=== PATIENT | male | born 1940 | race Caucasian/White ===

== ENCOUNTER → 2023-08-13 11:58 | Outpatient (REF) | payer MEDICARE, SELFPAY ==
[2023-08-13 12:45] LABS: % Basophils 0.4 % (0-2); % Eosinophils 2.2 % (0-6); % Immature Granulocytes 0.3 % (0-0.5); % Monocytes 7.6 % (1.7-9.3); % Neutrophils 45.5 % (42.2-75.2); Absolute Eosinophils 0.2 10^3/uL (0-0.7); Absolute Lymphocytes 4.7 10^3/uL (1.2-3.4); Absolute Monocytes 0.8 10^3/uL (0.1-0.6); Absolute Neutrophils 4.9 10^3/uL (1.4-6.5); Mean Corp Hgb Conc. 33.3 g/dL (33.0-37.0); Mean Corpuscular Hgb 29.1 pg (27.0-31.0); Mean Corpuscular Volume 87.3 fL (80.0-94.0); Mean Platelet Volume 11.1 fL (7.4-10.4); Nucleated Red Blood Cells % 0 % (-); Platelet Count 231 10^3/uL (130-400); Red Blood Cell Count 4.81 10^6/uL (4.70-6.10); Red Cell Dist. Width 12.5 % (11.5-14.5); White Blood Cell Count 10.7 10^3/uL (4.8-10.8)
[2023-08-13 13:40] LABS: TSH 2.89 uIU/ml (0.47-4.68)
[2023-08-13 13:41] LABS: Microalbumin, Random Urine > 57.0 mg/dl (0.6-1.7)
[2023-08-13 14:24] LABS: Glycohemoglobin (HgbA1c) 7.1 % (4.0-5.6)
[2023-08-15 23:00] LABS: PSA Total 0.2 ng/mL (0.0-4.0)
== END ==
LOC: REG 11:58
PROVIDERS: ATTENDING PHYSICIAN Internal Medicine
DX: E11.21 Type 2 diabetes mellitus with diabetic nephropathy (principal); R53.83 Other fatigue; E78.5 Hyperlipidemia, unspecified; Z00.00 Encounter for general adult medical examination without abnormal findings; D72.9 Disorder of white blood cells, unspecified; N40.0 Benign prostatic hyperplasia without lower urinary tract symptoms; N52.9 Male erectile dysfunction, unspecified
CPT/HCPCS: 36415; 82043; 83036; 84153; 84154; 84443; 85025

== ENCOUNTER 2023-11-19 06:58 | Day surgery (SDC) | payer MEDICARE, SELFPAY ==
[2023-11-19] VITALS (17 sets, daily range): BP systolic 139–228; BP diastolic 72–123
--- NOTE | 2023-11-19 04:28 | ED.GENMED ---
History of Present Illness
General
Chief Complaint: Urinary Symptoms
Source: patient
Exam Limitations: none
Time Seen by Provider: 11/19/23 04:22
Travel History
Have you had any contact with someone who has COVID-19?: No
Do you have any symptoms of coronavirus? Fever > 100 degrees, chills, cough, shortness of breath, sore throat, loss of taste or smell, muscle aches, or headache?: No
History of Present Illness
History of Present Illness:
See MDM
Past History
Past History
ED Past Medical History: GERD, HTN, Other (Colon polyps, diverticular disease, DJD) and Other (3 weeks ago, stung by a number of bees in the face, face swelled badly, saw pmd, put on prednisone and given epi pen rx with instruction to use if stung
again)
Social History
Tobacco: Non-smoker
Personal:
Living: with family
Employment: Retired
Phy Exam
Physical Exam
Physical Exam:
See MDM
Course
Orders/Labs/Results
Orders:
Orders
11/19/23 04:27
Catheter [Gonzalez Placement- Treatment] ONCE
Reason for insertion: Acute Retention
Tamsulosin [Flomax] 0.4 mg PO NOW STA
11/19/23 04:28
Urinalysis Reflex To Culture Urgent
11/19/23 05:29
Consult Urology [UROLOGY CONSULT] Urgent
Consulting Provider: Onel Grant Jr.
Was physician already notified: Yes
Vital Signs
Initial and Last Documented VS:
Initial Vital Signs
Temp Pulse Resp BP Pulse Ox
97.8 F 78 24 213/116 100
11/19/23 04:09 11/19/23 04:09 11/19/23 04:09 11/19/23 04:09 11/19/23 04:09
Last Documented Vital Signs
Temp Pulse Resp BP Pulse Ox
97.8 F 78 24 228/123 93
11/19/23 04:09 11/19/23 04:09 11/19/23 04:09 11/19/23 05:23 11/19/23 05:30
MDM/Problems Addressed
Differential Diagnosis Includes:
HPI and MDM Narrative:
83-year-old male presenting with trouble urinating since yesterday. Patient states he intermittently dribbles and intermittently has incontinence issues. When questioned, patient states that he does have a large prostate but does not take medicine
for it. He has followed up with urology in the past. Bedside bladder scan shows greater than 700 cc of urine. Patient gave verbal consent for urinary catheter placement
Physical exam
General: Well appearing and non-toxic
HEENT: protecting airway
Neck: appears supple
CV: No evidence of cyanosis
Resp: No accessory muscle use
Abd: Non-distended. Palpable bladder
Extremities: No deformities
Neuro: alert
Psych: Normal affect
Skin: Intact
Problems Addressed including Acute and Chronic Conditions affecting care:
1. Acute urinary retention
Acuity: acute
Prognosis: stable
Details: Given age likely related to prostate hypertrophy. Will place Gonzalez catheter and start flow
Updates
Nursing unable to place Gonzalez catheter. I had tried with coud� and silicone and unable to place Gonzalez catheter. Urology made aware
6 AM urology at bedside and unable to place Gonzalez. Will plan to OR
Will give dose of labetalol for uncontrolled hypertension
Differential Diagnosis (but not limited to): UTI, BPH, bladder spasm, prostate spasm
Testing considered: Blood work
Drug therapy (if applicable): OTC meds, please see d/c instruction regarding Rx drugs
Amount and/or Complexity of Data Reviewed
Clinical info obtained from: Patient
External data reviewed: N/A
Labs I independently reviewed (but not limited to): N/A
Radiology: N/A
Pulse Ox: not hypoxic
EKG independently reviewed: N/A
In Mold Coater: N/A
Critical Care: N/A
Risk of Complication:
Social Determinants of health: Good social support
Discussed with other providers: Urology
Escalation of Care includes Admit/Obs: Given the acute urinary retention and unable to place Gonzalez, patient will go to the OR
Occasional wrong word or 'sound a like' substitutions may have occurred due to the inherent limitations of voice recognition software. Read the chart carefully and recognize, using context, where substitutions have occurred.
*Critical Care Note
Total Time (30-74mins, 75-104mins- exclusive of procedures): Not Applicable
ED Attending Note
-
Portions of this chart may have been created with voice recognition software.� Occasional wrong word or��sound alike� substitutions may have occurred due to the inherent limitations of voice recognition software.
Discharge Plan
Departure
Patient Disposition: OR
Date of Disposition: 11/19/23
Time of Disposition: 06:05
Admit to: OR
Presentation/result/management discussed w/ accepting MD/DO: Urology
Discharge Problem:
Acute urinary retention
Prescriptions:
No Action
Aspirin
81 mg PO DAILY
lansoprazole [Prevacid] 30 MG capsule,delayed release(DR/EC)
30 mg PO DAILY
atenolol 50 MG tablet
50 mg PO DAILY
FIBER LAXATIVE
Patient Comments:
pt takes two 'Fiber Gummies 10mg each' daily
FISH OIL 1,000 MG SOFTGEL
1 gel PO DAILY
MULTIVITAMIN
1 tab PO DAILY
SAW PALMETTO
1 tab PO DAILY
hydrocodone-acetaminophen 5 MG/500 MG tablet
1 tab PO Q4HPRN PRN (Reason: PAIN) Qty: 25 0RF
Interventions
Interventions:
*Risk Screen - Suicide Last Done: 11/19/23 04:09
*Neglect/Abuse Screening Last Done: 11/19/23 04:09
ED-Male Genitourinary Assessment Last Done: 11/19/23 05:38
Discharge Date and Time
Print Language: WOLOF
[2023-11-19] MEDS: FLOMAX 0.400000000000000022 MG PO (05:44)
[2023-11-19] MEDS: ROCEPHIN 1000 MG IV (06:13)
--- NOTE | 2023-11-19 06:15 | W.PN.ADMIT ---
Progress Note - Admit
Progress Note - Admit
pt without prior gu hx
developed AUR
unable to pass villanueva
multiple attempts at bedside- obstruction appears to be in urethra- ? stx
now with hematuria
plan for OR for cysto/dilation/villanueva placement- although sp tube may be required
risks, benefits and disabilities reviewed
[2023-11-19] MEDS: TRANDATE 10 MG IV (06:21)
[2023-11-19 06:33] LABS: % Basophils 0.4 % (0-2); % Eosinophils 2.3 % (0-6); % Immature Granulocytes 0.4 % (0-0.5); % Monocytes 8.2 % (1.7-9.3); % Neutrophils 52.7 % (42.2-75.2); Absolute Basophils 0.1 10^3/uL (0-0.2); Absolute Eosinophils 0.3 10^3/uL (0-0.7); Absolute Immature Granulocytes 0.1 10^3/uL (0-0.05); Absolute Lymphocytes 4.9 10^3/uL (1.2-3.4); Absolute Monocytes 1.1 10^3/uL (0.1-0.6); Absolute Neutrophils 7.2 10^3/uL (1.4-6.5); Hemoglobin 15.1 g/dL (13.0-18.0); Mean Corp Hgb Conc. 35.1 g/dL (33.0-37.0); Mean Corpuscular Hgb 29.3 pg (27.0-31.0); Mean Corpuscular Volume 83.5 fL (80.0-94.0); Mean Platelet Volume 11.1 fL (7.4-10.4); Nucleated Red Blood Cells % 0 % (-); Platelet Count 242 10^3/uL (130-400); Red Blood Cell Count 5.15 10^6/uL (4.70-6.10); Red Cell Dist. Width 12.7 % (11.5-14.5); White Blood Cell Count 13.6 10^3/uL (4.8-10.8)
[2023-11-19 06:40] LABS: INR 0.97; PT 12.7 Sec (11.4-14.6)
[2023-11-19 06:41] LABS: APTT 36.1 Sec (23.4-35.0)
[2023-11-19 06:45] LABS: ALT (SGPT) 15 U/L (0-50); AST (SGOT) 27 U/L (17-59); Albumin 4.4 g/dl (3.5-5.0); Alkaline Phosphatase 137 U/L (38-126); Blood Urea Nitrogen 27 mg/dl (9-20); Calcium 9.4 mg/dl (8.4-10.2); Carbon Dioxide 24 mmol/L (22-30); Chloride 100 mmol/L (98-107); Glucose 206 mg/dl (70-99); Potassium 4.4 mmol/L (3.5-5.1); Sodium 136 mmol/L (135-145); Total Bilirubin 0.5 mg/dl (0.2-1.3); Total Protein 7.4 g/dl (6.3-8.2); eGFR > 60.00
[2023-11-19 08:25] LABS: Glucose - Point of Care 184 mg/dl (70-99)
[2023-11-19] MEDS: NSS 1000 IV ×2 (09:00→22:04)
--- NOTE | 2023-11-19 10:00 | PTCARENOTE ---
Pt received from the PACU via bed. Transport was w/o incident. Pt denies pain or nausea at this time. VS: 98.4-70-16-154/90, pulse ox 98%2L 02 via nc. Pt with low abd suprapubic area dry, guaze dressing, no drainage noted. Gonzalez from Supra pubic
area draining clear, sl green urine. Pt instructed on plan of care, Pt verbalized understanding of instructions, call weinstein is within reach.
--- NOTE | 2023-11-19 10:23 | SUR.PHASEI ---
patient in pacu - post insertion of suprapubic cath, vss, BP much improved from preop. minimal discomfort. attempted to wean O2 - sats drop with sleep. resume 2l/m NC. occasional bloody drainage from penis. SO - Bianca - updated x2. discharge to
[address]
[2023-11-19] MEDS: TENORMIN 50 MG PO (17:56)
[2023-11-19] MEDS: COZAAR 100 MG PO (17:57)
[2023-11-19] MEDS: PROTONIX 40 MG PO (17:57)
[2023-11-19] MEDS: GLUCOPHAGE 500 MG PO (17:57)
[2023-11-19] MEDS: KEFLEX 250 MG PO (20:14)
[2023-11-19] MEDS: COLACE 100 MG PO (20:15)
--- NOTE | 2023-11-20 04:26 | DOWNTIME ---
There was a [employer] Client Boxer Operator Downtime on 11/19/2023 from 0100 to 11/20/2023 at 0300. Downtime documentation of patient's care, including medication administrations, has been reconciled in the electronic record per guidelines. Refer to the
patient's paper chart under the miscellaneous tab to see printed paper medication records and downtime forms.
[2023-11-20 07:04] LABS: Hematocrit 38.5 % (39.0-52.0); Hemoglobin 12.8 g/dL (13.0-18.0); Mean Corp Hgb Conc. 33.2 g/dL (33.0-37.0); Mean Corpuscular Hgb 28.8 pg (27.0-31.0); Mean Corpuscular Volume 86.5 fL (80.0-94.0); Mean Platelet Volume 10.8 fL (7.4-10.4); Platelet Count 203 10^3/uL (130-400); Red Blood Cell Count 4.45 10^6/uL (4.70-6.10); Red Cell Dist. Width 12.8 % (11.5-14.5); White Blood Cell Count 16.5 10^3/uL (4.8-10.8)
--- NOTE | 2023-11-20 07:28 | W.PN.URO.CBU ---
Today's Communication / Plan
-
discharge after cath teaching and VN
Assessment / Plan
-
urinary retention and urethral obstruction/stx
s/p sp tube placement
reviewed OR findings and outpt plan
for discharge today with VN
Diagnosis
-
Date of Service: November 20, 2023
-
Patient Diagnosis:
urinary retention
Post Op Day:
1 sp tube placement
Subjective
-
pt feels good
urine clear
ct with no unexpected findings
Objective
-
Vital Signs
Temp Pulse Resp BP Pulse Ox
97.8 F 71 16 144/78 94
11/19/23 22:15 11/19/23 22:15 11/19/23 22:15 11/19/23 22:15 11/19/23 22:15
Intake and Output
11/19/23 11/20/23 11/21/23
06:59 06:59 06:59
Intake Total 1520 / 1520
Output Total 5150 / 5150
Balance -3630 / -3630
Intake:
Oral fluids 360 / 360
IV fluids (Total) 1160 / 1160
normosol 100 / 100
nss 100 / 100
Output:
Urine, Gonzalez 5150 / 5150
Laboratory Results
11/20/23 06:35
Review of Systems
-
Constitutional: Fatigue
Respiratory: No Symptoms
Cardiac: No Symptoms
Abdomen/GI: No Symptoms
: No Symptoms
Physical Exam
-
General - no acute distress
Abdomen - soft, non-tender, positive bowel sounds, sp tube and site with no sig discharge- urine clear
Genitalia - normal
Skin - warm & dry with no rash
Neuro - AOx3, no motor deficits
Extremities - no clubbing, no cyanosis, no edema
--- NOTE | 2023-11-20 07:33 | W.DS.TRANS ---
DC Summary - [employer]
-
Discharge Instructions:
Discharge Diagnosis/Procedures urinary retention and urethral stricture
you had a supra-pubic tube placement
Diet No restrictions
Activity No strenuous activity
Driving Restrictions No driving for 1 week
Bathing Restrictions OK to Shower
Wound Care change dressing around bladder tube once a day
Instructions:
Stand-Alone Forms:
Changes to Home Medications: No
Discharge Medications:
DC Medications w/original date entered in [employer]
SAW PALMETTO 1 tab PO DAILY 10/05/10
atenolol 50 mg tablet 50 mg PO DAILY 10/05/10
losartan 100 mg tablet 100 mg PO DAILY 11/19/23
metformin 500 mg tablet 500 mg PO DAILY 11/19/23
omeprazole 20 mg capsule,delayed release 20 mg PO DAILY 11/19/23
cephalexin 250 mg capsule 250 mg PO BID #10 caps 11/20/23
Home Medication Changes
Pending Results: No
[2023-11-20 07:40] LABS: Blood Urea Nitrogen 31 mg/dl (9-20); Calcium 8.9 mg/dl (8.4-10.2); Carbon Dioxide 26 mmol/L (22-30); Chloride 101 mmol/L (98-107); Estimated Creatinine Clearance 56 ml/min; Glucose 140 mg/dl (70-99); Potassium 4.4 mmol/L (3.5-5.1); Sodium 135 mmol/L (135-145); eGFR 59.26
[2023-11-20 07:41] VITALS: BP 184/93
[2023-11-20] MEDS: GLUCOPHAGE 500 MG PO (07:57)
[2023-11-20] MEDS: COZAAR 100 MG PO (07:57)
[2023-11-20] MEDS: PROTONIX 40 MG PO (07:57)
[2023-11-20] MEDS: APRESOLINE 5 MG IV (07:58)
[2023-11-20] MEDS: KEFLEX 250 MG PO (07:58)
[2023-11-20] MEDS: TENORMIN 50 MG PO (07:58)
[2023-11-20] MEDS: COLACE 100 MG PO (07:58)
--- NOTE | 2023-11-20 10:08 | CM ---
care services manager reviewed patient's chart and met with patient and patient states he lives alone in a [place] and [place] community. Patient is independent with adl's and ambulation, no dme, patient drives, patient has a friend who lives nearby, and can assist
patient after discharge, patient's son, Ramón is visiting from [place]. care services manager reviewed visiting nurses options with patient and patient has selected [facility], [facility] liaison contacted. Patient has a prescription plan and uses [facility] pharmacy.
PCP: Dr. Rodriguez.
Plan; Home with VN.
[2023-11-20 12:20] VITALS: BP 160/82
--- NOTE | 2023-11-20 12:21 | VNURNOTE ---
Home Health Liaison met with patient, son and significant other Bianca at 1030 to discuss [facility] nurse visits, schedule and homebound status. Patient is agreeable and understands that visits at home will be 2-3 x per week to assess and teach medical
management and suprapubic tube management.
[facility] brochure provided with contact information. Patient is aware that [facility] will contact him for start of care in 1-2 days after discharge from .
[facility] referral completed in Care Port.
== END 2023-11-20 12:43 | disposition home health service (06) ==
LOC: PACU 06:58
PROVIDERS: ATTENDING PHYSICIAN Specialist; EMERGENCY PHYSICIAN Student in an Organized Health Care Education/Training Program; FAMILY PHYSICIAN Internal Medicine
DX: N35.919 Unspecified urethral stricture, male, unspecified site (principal); R33.9 Retention of urine, unspecified
CPT/HCPCS: 51040; 74176; 80048; 80053; 82962; 85025; 85027; 85610; 85730; 86850; 86900; 86901; 93005; 96374; 96375; 99285

== ENCOUNTER 2024-01-07 06:10 | Day surgery (SDC) | payer MEDICARE, SELFPAY ==
[2024-01-07] VITALS (8 sets, daily range): BP systolic 159–191; BP diastolic 87–97; BMI 31.8
[2024-01-07] MEDS: NORMOSOL-R 1000 IV (07:10)
[2024-01-07 07:19] LABS: Glucose - Point of Care 142 mg/dl (70-99)
[2024-01-07] MEDS: TYLENOL 1000 MG PO (07:42)
[2024-01-07 08:56] LABS: Glucose - Point of Care 152 mg/dl (70-99)
== END 2024-01-07 10:14 | disposition home or self-care (01) ==
LOC: SDS 06:10
PROVIDERS: ATTENDING PHYSICIAN Specialist
DX: N35.919 Unspecified urethral stricture, male, unspecified site (principal); R33.9 Retention of urine, unspecified
CPT/HCPCS: 52276; 72170; 76000; 82962; J1580

== ENCOUNTER → 2024-02-12 11:45 | Outpatient (REF) | payer MEDICARE, SELFPAY ==
[2024-02-12 14:24] LABS: Glycohemoglobin (HgbA1c) 6.9 % (4.0-5.6)
[2024-02-12 14:41] LABS: ALT (SGPT) 16 U/L (0-50); AST (SGOT) 28 U/L (17-59); Albumin 4.2 g/dl (3.5-5.0); Alkaline Phosphatase 103 U/L (38-126); Blood Urea Nitrogen 28 mg/dl (9-20); Calcium 9.7 mg/dl (8.4-10.2); Carbon Dioxide 30 mmol/L (22-30); Chloride 99 mmol/L (98-107); Glucose 140 mg/dl (70-99); HDL Cholesterol 49 mg/dl; LDL Cholesterol, Calculated 119 mg/dl; Potassium 5.5 mmol/L (3.5-5.1); Sodium 137 mmol/L (135-145); Total Bilirubin 0.8 mg/dl (0.2-1.3); Total Cholesterol 185 mg/dl (50-199); Total Protein 6.9 g/dl (6.3-8.2); Triglyceride 87 mg/dl (10-149); Very Low Density Lipoprotein 17 mg/dl (0-30); eGFR 49.25
== END ==
LOC: REG 11:45
PROVIDERS: ATTENDING PHYSICIAN Internal Medicine
DX: E11.21 Type 2 diabetes mellitus with diabetic nephropathy (principal); E78.5 Hyperlipidemia, unspecified
CPT/HCPCS: 36415; 80053; 80061; 83036

== ENCOUNTER → 2024-08-13 12:35 | Outpatient (REF) | payer MEDICARE, SELFPAY ==
[2024-08-13 13:25] LABS: ALT (SGPT) 14 U/L (0-50); AST (SGOT) 25 U/L (17-59); Albumin 4.1 g/dl (3.5-5.0); Alkaline Phosphatase 104 U/L (38-126); Blood Urea Nitrogen 24 mg/dl (9-20); Calcium 9.4 mg/dl (8.4-10.2); Carbon Dioxide 31 mmol/L (22-30); Chloride 97 mmol/L (98-107); Glucose 142 mg/dl (70-99); HDL Cholesterol 47 mg/dl; LDL Cholesterol, Calculated 118 mg/dl; Potassium 4.8 mmol/L (3.5-5.1); Sodium 136 mmol/L (135-145); Total Cholesterol 187 mg/dl (50-199); Total Protein 7.2 g/dl (6.3-8.2); Triglyceride 113 mg/dl (10-149); Very Low Density Lipoprotein 22 mg/dl (0-30)
[2024-08-13 13:26] LABS: Hematocrit 42.5 % (39.0-52.0); Mean Corp Hgb Conc. 32.9 g/dL (33.0-37.0); Mean Corpuscular Hgb 28.9 pg (27.0-31.0); Mean Corpuscular Volume 87.8 fL (80.0-94.0); Mean Platelet Volume 11.3 fL (7.4-10.4); Platelet Count 205 10^3/uL (130-400); Red Blood Cell Count 4.84 10^6/uL (4.70-6.10); Red Cell Dist. Width 12.5 % (11.5-14.5); White Blood Cell Count 11.5 10^3/uL (4.8-10.8)
[2024-08-13 13:48] LABS: % Basophils 0.6 % (0-2); % Eosinophils 3.6 % (0-6); % Immature Granulocytes 0.3 % (0-0.5); % Lymphocytes 42.5 % (20.5-51.1); % Monocytes 7.8 % (1.7-9.3); % Neutrophils 45.2 % (42.2-75.2); Absolute Basophils 0.1 10^3/uL (0-0.2); Absolute Eosinophils 0.4 10^3/uL (0-0.7); Absolute Lymphocytes 4.9 10^3/uL (1.2-3.4); Absolute Monocytes 0.9 10^3/uL (0.1-0.6); Absolute Neutrophils 5.2 10^3/uL (1.4-6.5); Nucleated Red Blood Cells % 0 % (-)
== END ==
LOC: REG 12:35
PROVIDERS: ATTENDING PHYSICIAN Internal Medicine
DX: E11.21 Type 2 diabetes mellitus with diabetic nephropathy (principal); I10 Essential (primary) hypertension; E78.5 Hyperlipidemia, unspecified; Z00.00 Encounter for general adult medical examination without abnormal findings
CPT/HCPCS: 36415; 80053; 80061; 83036; 85025

== ENCOUNTER 2025-01-18 16:22 | Inpatient (IN) | payer MEDICARE, SELFPAY ==
[2025-01-18] VITALS (13 sets, daily range): BP systolic 150–209; BP diastolic 68–111; BMI 31.6; BMI 30.9
--- NOTE | 2025-01-18 14:39 | ED.GENMED ---
History of Present Illness
General
Chief Complaint: Abdominal Symptoms
Time Seen by Provider: 01/18/25 14:14
History of Present Illness
History of Present Illness:
84-year-old male for evaluation of jaundice without abdominal pain for the past 1 to 2 weeks. Saw his primary care physician today and had outpatient labs showing transaminitis, alk phos predominant, with a total bilirubin of 10. Was sent for an
outpatient ultrasound which is not yet resulted but by my interpretation shows a distended GB without wall thickening or pericholecystic fluid, CBD markedly dilated. No abd pain. Reports light stool and dark urine. Denies ETOH use. No fevers or
chills.
Past History
Past History
ED Past Medical History: GERD, HTN, Other (Colon polyps, diverticular disease, DJD) and Other (3 weeks ago, stung by a number of bees in the face, face swelled badly, saw pmd, put on prednisone and given epi pen rx with instruction to use if stung
again)
Social History
Tobacco: Non-smoker
Personal:
Living: with family
Employment: Retired
Review of Systems
Review of Systems
Allergies reviewed?: Yes
All Other Systems: ROS reviewed and negative except as documented in HPI and ROS
Phy Exam
Physical Exam
Physical Exam:
GEN: Globally jaundiced but in no distress
HEENT: Oral mucosa moist, significant scleral icterus
Cardiac: Regular rate and rhythm, no murmurs
Lung: No respiratory distress, no tachypnea, lungs clear to auscultation
Abdomen: Soft, grossly nontender, no palpable masses
MSK: No gross deformity or injuries
Skin: Marked diffuse jaundice no petechial lesions
Neuro: AO x3, moves all extremities freely
Psych: Calm, cooperative
Course
Orders/Labs/Results
Orders:
Orders
01/18/25 14:38
0.9% Sodium Chloride 1000 ml [Nss] 1,000 ml IV BOLUS
01/18/25 Dinner
Cholesterol Lowering
At Your Request: Full Participation
Does patient need a safe tray?: No
Cholesterol Lowering: Sodium, 2 Gram
1800 elieser/15 CHO Diabetic
01/18/25 15:22
Direct Bilirubin Urgent
Lipase Urgent
Prothrombin Time Urgent
01/18/25 15:26
Diphenhydramine [Benadryl] 12.5 mg IV NOW STA
01/18/25 15:43
Urinalysis Reflex To Culture Urgent
Date Specimen was Collected: 01/18/25
Time Specimen was Collected: 15:40
Urine Microscopic Reflex Cult Urgent
01/18/25 15:54
HydrALAZINE [Apresoline] 10 mg IV NOW STA
01/18/25 15:55
MR Abdomen W/o & W Contrast Routine
Comment:
Reason For Exam: with mrcp - biliary obstruction
Recent pill cam endoscopy?: No
HydrALAZINE [Apresoline] 20 mg .ROUTE .STK-MED ONE
01/18/25 15:57
Admit/Transfer Patient As Directed
Co-Sign Provider:
Level of Care: Inpatient admission
Assign to:: Telemetry
Physician / Group: Dr Barraza
Diagnosis: Painless Jaundice
Reason for Telemetry: Arrhythmia
Date to Stop Telemetry: 01/21/25
Time to Stop Telemetry: 11:00
Reason for Hospitalization: Painless Jaundice
Expected length of stay greater than two midnights?: Yes
ELOS- Estimated Length of Stay in days: 2
I certify the patient meets the requirements for IP care: Yes
PRN Pain Medication Management As Directed
May give lesser potent ordered pain med per pt: Yes
preference::
Protocol:: Medication orders for pain may be administered in a
manner that supports deferring to patient preference
when the pt is:
- Requesting an ordered lesser potent pain medication.
Least to most potent pain medications are defined
as: acetaminophen < NSAID < tramadol < opioids
(morphine, oxycodone, hydromorphone).
- Requesting a lesser dose of the same medication IF
ORDERED.
- Requesting a less intrusive route of administration
if both routes are prescribed by the provider (PO <
IV).
01/18/25 15:59
Code Status As Directed
Resuscitation Status: Full Code
01/18/25 16:02
Dextrose 50%-Water [Dextrose 50% Syringe] 12.5 grams IV [id number] PRN
Glucagon [GlucaGen] 1 mg IM PRN PRN
Labetalol HCl [Trandate] 10 mg IV NOW STA
Bedside Glucose Monitoring As Directed
Frequency: AC&HS
Additional Instructions:: Change to q6h if pt on TPN, tube feeding or not eating
01/18/25 16:30
Insulin Aspart Corrective Mod [Novolog Flexpen-Moderate Resistance] See Protocol SC AC
01/18/25 17:52
Bisacodyl [Dulcolax] 10 mg RECTAL [id number] PRN
Docusate W/Senna [Senokot-S] 1 tablet PO BIDPRN PRN
Polyethylene Glycol Powder [Miralax] 17 grams PO DAILYPRN PRN
01/18/25 17:52
Activity As Directed
Activity Level: Out of Bed-Early Mobility
Vital Signs As Directed
Frequency: Per unit guidelines
DX Deep Vein Thrombosis Video Routine
01/18/25 18:00
Enoxaparin Sodium [Lovenox] 40 mg SC QPM
01/19/25 06:00
B12 [Vitamin B12] IN AM
Complete Blood Count/With Diff IN AM
Comprehensive Metabolic Panel IN AM
Ferritin IN AM
Folate IN AM
Glycohemoglobin (HgbA1c) IN AM
Iron IN AM
PT/INR [Prothrombin Time] IN AM
Total Iron Binding IN AM
01/21/25 11:00
DC Protocol for Telemetry ONCE
Abnormal Lab Results
01/18/25 01/18/25
15:22 15:43
Direct Bilirubin 9.9 H mg/dl
(0.0-0.4)
Ur Occult Blood Reflex 1+ A
(Negative)
Urine Bilirubin 1+ A
(Negative)
Urine Bacteria (Reflex) Few A
(Negative)
Urine Albumin (Reflex) 2+ A
(Neg - Trace)
Vital Signs
Initial and Last Documented VS:
Initial Vital Signs
Temp Pulse Resp BP Pulse Ox
98 F 63 18 197/111 99
01/18/25 13:08 01/18/25 13:08 01/18/25 13:08 01/18/25 13:08 01/18/25 13:08
Last Documented Vital Signs
Temp Pulse Resp BP Pulse Ox
97.8 F 59 16 166/88 100
01/18/25 18:05 01/18/25 21:06 01/18/25 18:05 01/18/25 21:06 01/18/25 18:05
MDM/Problems Addressed
MDM/Problems Addressed:
Ultrasound as an outpatient reviewed showing significant common bile duct dilatation no signs of cholecystitis. At this time suspicion for pancreatic lesion versus choledocholithiasis remains, will admit for further GI workup as an inpatient
*Pulse Oximetry
SaO2: 99
Oxygen Mode of Delivery: Room air
Patient hypoxic: no
*Critical Care Note
Total Time (30-74mins, 75-104mins- exclusive of procedures): Not Applicable
ED Attending Note
-
Portions of this chart may have been created with voice recognition software.� Occasional wrong word or��sound alike� substitutions may have occurred due to the inherent limitations of voice recognition software.
Discharge Plan
Departure
Patient Disposition: Admit
Date of Disposition: 01/18/25
Time of Disposition: 15:51
Admit to: Med/Surg
Presentation/result/management discussed w/ accepting MD/DO: Hospitalist
Discharge Problem:
Obstructive jaundice
Interventions
Interventions:
*Risk Screen - Suicide Last Done: 01/18/25 15:22
*General Assessment Last Done: 01/18/25 13:08
*Neglect/Abuse Screening Last Done: 01/18/25 15:22
*ED- Fall Risk Assessment Last Done: 01/18/25 15:22
*ED COVID-19 Vaccine History Last Done: 01/18/25 15:22
*Nursing Disposition Last Done: 01/18/25 17:53
VN-Sxjrgn-Rzuvenixfj Assessment Last Done: 01/18/25 15:22
Discharge Date and Time
Discharge Date/Time: 01/18/25 17:54
--- NOTE | 2025-01-18 15:31 | CON.GI ---
Consultation
-
Date/Time Consultation Performed: 01/18/2025
Performing Provider: Roderick Ramirez MD
Reason for Consultation: elevated LFT
Medical History
Chief Complaint / HPI
Chief Complaint: Pruritus, jaundice
History of Present Illness:
The patient is an 84-year-old male with past medical history as noted who presents with increasing pure-itis and jaundice. For the past couple of weeks has had increasing itching and noted of dark urine, light-colored stools and was notably
jaundiced by his primary care. He was sent for ultrasound and lab work, which showed markedly elevated LFTs with a bilirubin around 10, and dilated common bile duct and intrahepatic duct dilation which was new from CT scan year ago. Overall
besides the pruritus he is active and feeling well, with no abdominal pain, weight loss, nausea, vomiting, fever, chills. He is overall very active and denies any chest pain or shortness of breath.
Past Medical History
Past Medical History: Other (Hypertension, hemorrhoids, Jackson's cyst, obesity, colon polyps, GERD, diabetes)
Past Surgical History: Other (Hip replacement, knee arthroscopy, cystoscopy, urethral stricture)
Social History
Tobacco: Non-Smoker
Alcohol: Occasional
Family History
Family History: Cancer (Colon cancer)
Allergies / Home Medications
Allergy/AdvReac Type Severity Reaction Status Date / Time
bee venom protein (honey bee) Allergy Swelling Verified 01/18/25 13:08
�Medication �Instructions �Recorded
atenolol 50 mg tablet 50 mg PO DAILY 10/05/10
losartan 100 mg tablet 100 mg PO DAILY 11/19/23
metformin 500 mg tablet 500 mg PO DAILY 11/19/23
omeprazole 20 mg capsule,delayed 20 mg PO DAILY 11/19/23
release
tamsulosin 0.4 mg capsule (Flomax) 0.4 mg PO DAILY 12/31/23
Review of Systems
-
All other systems: A 12 pt ROS was Negative except as stated above in HPI
Vital Signs
Temp Pulse Resp BP Pulse Ox
98 F 63 18 197/111 99
01/18/25 13:08 01/18/25 13:08 01/18/25 13:08 01/18/25 13:08 01/18/25 14:43
Physical Exam
Exam
General: NAD, jaundice
HEENT: MMM, icteric, no lymphadenopathy
Heart: Regular, no murmurs
Lungs: CTA bilaterally
Abdomen: normal bowel sounds, soft, no tenderness, no rebound or guarding, no masses, bruits or ascites
Extremeties: no edema
Skin: no rashes
Results
Diagnostic Image Results:
US:
IMPRESSION:
The gallbladder is mild to moderately distended and contains a moderate amount of sludge. No secondary findings for acute cholecystitis.
Nonspecific dilatation of the common bile duct measuring up to 19 cm proximally. There is also mild intrahepatic ductal dilatation. Distal common bile duct not visualized. Note that this dilatation is new compared to the prior CT from last year.
Correlation with LFTs is suggested. Further evaluation with MRCP may be warranted.
Prior GI Procedures:
EGD:
Colonoscopy:
2021:
Impression: - One 4 mm polyp in the transverse colon, removed with
a cold snare. Resected and retrieved.
- Diverticulosis in the sigmoid colon.
Assessment / Plan
-
1. Elevated LFTs: With progressive symptoms over the past couple of weeks including pruritus, dark urine, light-colored stools, with dilated CBD on ultrasound consistent with biliary obstruction, concerning for pancreatic malignancy. At this point
we will check MRI of the abdomen with and without contrast, with MRCP. Pending those results likely EUS/ERCP. Will continue to trend LFTs for now.
-
-
Thank you for consultation and allowing me to participate in the patient's care. Please call the environmental consultant GI physician during the after hours with any questions or concerns.
[2025-01-18 15:46] LABS: Lipase 33 U/L (23-300)
[2025-01-18] MEDS: BENADRYL 12.5 MG IV (15:49)
[2025-01-18] MEDS: NSS 1000 IV (15:49)
[2025-01-18] MEDS: APRESOLINE 10 MG IV (15:56)
--- NOTE | 2025-01-18 16:00 | HPS.HSE ---
Family Physician
-
Family Physician: Enrique Rodriguez
Chief Complaint
-
Jaundice
History of Present Illness
Patient 84-year-old male with history of hypertension, diabetes mellitus, GERD, obesity, GERD, came into the hospital with jaundice. Patient has been experiencing jaundice associated with dark urine and light-colored stools for the last couple
weeks and he has also been having some pruritus. He denies fevers or chills. He denies weight loss. He denies nausea vomiting or abdominal pain. He has been having elevated LFTs. He had an outpatient abdominal ultrasound today that showed mild
to moderately distended gallbladder with moderate amount of sludge but no evidence of cholecystitis and CBD up to 19 cm. GI was consulted in the ER. He was also found to have elevated blood pressure and given some IV antihypertensive medication.
He does tell me that he typically runs high blood pressures especially when he goes to offices or hospitals. He is compliant with his antihypertensive regimen and took his medications today. Denies any chest pain shortness of breath or headache.
He was referred to hospitalist service for further evaluation.
Medical History
Past Medical History
Past Medical History: Reports Other (Hypertension, diabetes mellitus, GERD, BPH, obesity, Jackson's cyst, hemorrhoids, colon polyps.)
Past Surgical History: Reports Other (Hip replacement, knee arthroscopy, cystoscopy, urethral stricture)
Social History
Tobacco: Non-smoker
Alcohol: Occasional
Drug: None
Family History
Family History: Not pertinent
Allergies / Home Medications
Allergies reflects when Allergies were last updated in [facility].
Home Medications with original date entered in [facility]
Allergy/Medication List:
Allergies
Allergy/AdvReac Type Severity Reaction Status Date / Time
bee venom protein (honey bee) Allergy Swelling Verified 01/18/25 13:08
Home Medications
atenolol 50 mg tablet 50 mg PO DAILY 10/05/10
losartan 100 mg tablet 100 mg PO DAILY 11/19/23
metformin 500 mg tablet 500 mg PO DAILY 11/19/23
omeprazole 20 mg capsule,delayed release 20 mg PO DAILY 11/19/23
tamsulosin 0.4 mg capsule (Flomax) 0.4 mg PO DAILY 12/31/23
Review of Systems
-
A 12 point ROS was completed and negative except as noted: Yes
Physical Exam
Vital Signs
Vital Signs
Temp Pulse Resp BP Pulse Ox
98 F 70 13 209/87 99
01/18/25 13:08 01/18/25 15:47 01/18/25 15:47 01/18/25 15:46 01/18/25 14:43
Physical exam:
General: Acutely ill
HEENT: Icterus present. Normocephalic, Atraumatic and Moist Mucous Membranes
Respiratory: Clear to Auscultation; Negative Wheezes, Rales or Rhonchi
Cardiac: Regular Rhythm and S1/S2
GI: Soft, Nontender and Nondistended
Musculoskeletal: No Clubbing, No Cyanosis and No Edema
Neuro: Awake, Alert and Oriented, no neurological deficit
Psych: Calm
Physical Exam
General: Other
Laboratory Results
-
Laboratory Results
Lipase 33 U/L (23-300) 01/18/25 15:22
Data Reviewed
-
Ultrasound: Image Personally Visualized and interpreted
Lab Data: Labs Reviewed by me
Impression/Plan
-
IMPRESSION:
Patient 84-year-old male with multiple comorbidities came into the hospital with painless jaundice. Patient found to have significantly elevated LFTs and also significant elevated blood pressure. He is an increased risk of morbidity mortality due
to acute presentation and morbidities therefore he will need to be treated in the hospital and monitor accordingly.
PLAN:
Elevated liver function test:
Concerns for obstructive biliary tree process
GI consult appreciated
Plan for MRCP and if positive +/- ERCP EUS
Hold on antibiotic unless any fevers or evidence of infection
Hypertensive urgency:
IV hydralazine given stat
Labetalol IV if still elevated
Resume home antihypertensives but careful attention to renal function with ARB
Monitor blood pressure and adjust medications according
Cardiac monitoring
JERRY:
IV fluids with half-normal saline
Check bladder scan
Avoid nephrotoxic
Check renal function in a.m.
Anemia:
Check anemia workup
Monitor hemoglobin
Diabetes mellitus type 2:
Diabetic diet
Insulin sliding scale
Update hemoglobin A1c
Anxiety:
Give Xanax x 1
Reevaluate if needed more down the road
GERD:
Continue PPI
BPH:
Continue Flomax
DVT prophylaxis:
Lovenox SQ
CODE STATUS:
Full code
Time spent 75 minutes
[2025-01-18 16:19] LABS: Urine Character Clear (Clear)
[2025-01-18 16:20] LABS: PT 13.3 Sec (11.4-14.6)
[2025-01-18 16:21] LABS: INR 0.98
[2025-01-18] MEDS: TRANDATE 10 MG IV (16:48)
[2025-01-18] MEDS: XANAX 0.25 MG PO (16:50)
[2025-01-18] MEDS: 0.45%NACL 1000 IV (18:19)
[2025-01-18] MEDS: FLOMAX 0.4 MG PO (18:19)
[2025-01-18] MEDS: LOVENOX 40 MG SC (18:19)
[2025-01-18 18:21] LABS: Glucose - Point of Care 120 mg/dl (70-99)
[2025-01-18 18:38] LABS: Urine Red Blood Cell 0-2 /HPF (0-2)
[2025-01-18] MEDS: APRESOLINE 50 MG PO (21:06)
[2025-01-18] MEDS: APRESOLINE PO (21:45)
[2025-01-18 21:49] LABS: Glucose - Point of Care 123 mg/dl (70-99)
[2025-01-19 03:30] VITALS: BP 159/77
[2025-01-19] MEDS: BENADRYL 12.5 MG IV (04:37)
[2025-01-19 07:11] LABS: Hematocrit 30.1 % (39.0-52.0); Hemoglobin 10.4 g/dL (13.0-18.0); Mean Corp Hgb Conc. 34.6 g/dL (33.0-37.0); Mean Corpuscular Volume 88.0 fL (80.0-94.0); Nucleated Red Blood Cells % 0 % (-); Platelet Count 182 10^3/uL (130-400); Red Cell Dist. Width 17.2 % (11.5-14.5)
[2025-01-19 07:13] VITALS: BP 129/88
[2025-01-19] MEDS: 0.45%NACL 1000 IV (07:30)
[2025-01-19] MEDS: PROTONIX 40 MG PO (07:31)
[2025-01-19] MEDS: COZAAR 100 MG PO (07:31)
[2025-01-19] MEDS: APRESOLINE 50 MG PO ×3 (07:32→23:05)
[2025-01-19] MEDS: TENORMIN 50 MG PO (07:32)
[2025-01-19] MEDS: FLOMAX 0.4 MG PO (07:32)
[2025-01-19 07:53] LABS: INR 1.01; PT 13.6 Sec (11.4-14.6)
[2025-01-19 08:01] LABS: ALT (SGPT) 144 U/L (0-50); AST (SGOT) 130 U/L (17-59); Albumin 3.5 g/dl (3.5-5.0); Alkaline Phosphatase 648 U/L (38-126); Blood Urea Nitrogen 26 mg/dl (9-20); Calcium 8.4 mg/dl (8.4-10.2); Carbon Dioxide 24 mmol/L (22-30); Chloride 106 mmol/L (98-107); Estimated Creatinine Clearance 48 ml/min; Glucose 110 mg/dl (70-99); Iron 119 ug/dl (49-181); Potassium 3.3 mmol/L (3.5-5.1); Sodium 137 mmol/L (135-145); Total Protein 6.2 g/dl (6.3-8.2); eGFR 53.50
[2025-01-19 08:05] LABS: Glucose - Point of Care 102 mg/dl (70-99)
[2025-01-19 08:11] LABS: Total Iron Binding Capacity 266 ug/dl (261-462)
[2025-01-19 08:14] LABS: Ferritin 439.0 ng/ml (17.9-464.0)
[2025-01-19 08:29] LABS: Vitamin B12 847 pg/ml (239-931)
--- NOTE | 2025-01-19 08:32 | W.PN.HOSP.TC ---
Addendum entered and electronically signed by Ivan Barraza MD 01/19/25 14:09:
Hypertensive urgency
JERRY on CKD stage III-A
Original Note:
Today's Communication/Plan
-
MRCP. Antihypertensive adjustments.
Assessment / Plan
Assessment / Plan
Physical exam:
General: Acutely ill
HEENT: Icterus present. Normocephalic, Atraumatic and Moist Mucous Membranes
Respiratory: Clear to Auscultation; Negative Wheezes, Rales or Rhonchi
Cardiac: Regular Rhythm and S1/S2
GI: Soft, Nontender and Nondistended
Musculoskeletal: No Clubbing, No Cyanosis and No Edema
Neuro: Awake, Alert and Oriented, no neurological deficit
Psych: Calm
A/P:
Elevated liver function test:
Concerns for obstructive biliary tree process
GI consult appreciated
Plan for MRCP and if positive +/- ERCP EUS
Hold on antibiotic unless any fevers or evidence of infection
Add Benadryl as needed for itchiness
Ordered eyedrops at nighttime at patient request
Discussed with son at bedside today
Hypertensive urgency:
Improving but still not optimal yet
Multiple IV antihypertensives yesterday
Back to his home regimen losartan 100 mg daily and atenolol 50 mg p.o. daily. Added hydralazine 50 mg p.o. 3 times daily.
Monitor blood pressure and adjust medications according
Cardiac monitoring
JERRY:
Improved
Stop IV fluids today
Check bladder scan
Avoid nephrotoxic
Check renal function in a.m.
Anemia:
Check anemia workup and anemia of chronic disease
Monitor hemoglobin
Diabetes mellitus type 2:
Diabetic diet
Insulin sliding scale
Update hemoglobin A1c-->5.7
Anxiety:
Give Xanax x 1 yesterday
Reevaluate if needed more down the road
GERD:
Continue PPI
BPH:
Continue Flomax
DVT prophylaxis:
Lovenox SQ
CODE STATUS:
Full code
Total time spent on today's encounter was 52 minutes which included time spent in counseling the patient/family regarding diagnosis and treatment plan as listed above, goals of care, and symptom management. Case was discussed with nursing staff,
specialists, and care coordinators/case management. All labs and imaging personally reviewed by me. Remainder the time spent in detailed review of previous records, lab data, imaging, and other medical provider documentation.
Anticipated Discharge: 24 - 48 hours
Subjective/Interval History
-
Date of Service: January 19, 2025
Patient does complain of itchiness. No chest pain or shortness of breath. No headaches. Afebrile
Objective Data
-
Labs:
Laboratory Results
01/19/25
06:53
WBC 9.3
Hgb 10.4 L
Hct 30.1 L
Plt Count 182 D
PT 13.6
INR 1.01
Sodium 137
Potassium 3.3 L
Chloride 106
Carbon Dioxide 24
BUN 26 H
Creatinine 1.3
Glucose 110 H
Calcium 8.4
Total Bilirubin 10.8 H
AST 130 H
ALT 144 H
Alkaline Phosphatase 648 H
Vital Signs:
Vital Signs
Temp Pulse Resp BP Pulse Ox
97.5 F 62 18 129/88 96
01/19/25 07:13 01/19/25 07:13 01/19/25 07:13 01/19/25 07:13 01/19/25 08:00
I&O
01/18/25 01/19/25 01/20/25
06:59 06:59 06:59
Intake Total 1720 / 1720
Output Total 1950 / 1950
Balance -230 / -230
[2025-01-19] MEDS: KCL 40 MEQ PO (09:16)
[2025-01-19 09:45] LABS: Glycohemoglobin (HgbA1c) 5.7 % (4.0-5.6)
[2025-01-19 11:12] VITALS: BP 172/89
[2025-01-19 12:38] LABS: Glucose - Point of Care 114 mg/dl (70-99)
[2025-01-19 12:48] LABS: Glucose - Point of Care 153 mg/dl (70-99)
--- NOTE | 2025-01-19 13:37 | PN.CDI ---
CDI
- -
CDI:
Physician Documentation Request
Admit Date: 01/18/25 16:22
Dear Doctor Christi,
Please review the following and provide your response in the progress notes.
Clinical Indicators:
PN, 01/19
#Hypertensive urgency:
#...Improving but still not optimal yet
#...Multiple IV antihypertensives yesterday
#Back to his home regimen losartan 100 mg daily and atenolol 50 mg p.o. daily.
#...Added hydralazine 50 mg p.o. 3 times daily.
#JERRY:
#...Improved
#...Stop IV fluids today
Based on the above and your clinical assessment, please clarify which, if any of the following, is a more accurate diagnosis reflecting the type and acuity of the documented hypertension:
Hypertensive Emergency - B/P is severely elevated (systolic > or = to 180 or diastolic > or = to 110) but can occur at lower levels especially in patients who did not previously have high B/P. There is usually associated organ damage. Symptoms may
include: memory loss, LOC, CVA, MO, angina, renal failure, pulmonary edema. Generally requires more aggressive treatment and a hospitalization.
Hypertensive Urgency - B/P is severely elevated (systolic > or = to 180 or diastolic > or = to 110) but there is no associated organ damage. Symptoms may include: headache, shortness of breath, nosebleeds, severe anxiety. Treatment usually consists
of addition to or adjusting of oral medications and does not generally necessitate hospitalization.
Other (please specify)
Use of terms such as suspected, likely, concern for, or probable (associated with a specific diagnosis that is being evaluated, monitored, or treated as if it exists) are acceptable and can be coded in the inpatient setting, when documented at the
time of discharge.
Thank you,
Bianca Trejo RN BSN CCDS
CDI Specialist
Please contact via tiger text
Please use your independent medical judgment in providing your response.
--- NOTE | 2025-01-19 13:43 | PN.CDI ---
CDI
- -
CDI:
Physician Documentation Request
Admit Date: 01/18/25 16:22
Dear Doctor Christi,
Please review the following and provide your response in the progress notes.
Clinical Indicators:
PN, 01/19
JERRY:
Improved
Laboratory Tests
01/19/25
06:53
Creatinine 1.3
eGFR 53.50
Based on the above information and the clinical indicators in the record, please clarify in the Progress Notes which of the following most accurately represents the patient's renal status:
Acute kidney injury with no underlying CKD
Acute kidney injury on baseline CKD, (specify stage of CKD)
Other (please specify)
Criteria for JERRY*
1 Increase in serum creatinine by > or = to 0.3 mg/dL (> or = to 26.5 micromol/L) within 48 hours, OR
2 Increase in serum creatinine to > or = to 1.5 times baseline, which is known or presumed to have occurred within 7 days, OR
3 Urine volume < 0.5 nL/kg/hour for six hours
Stages of Chronic Kidney Disease*
Level Description GFR
G1 Normal or High >90
G2 Mildly decreased 60-89
G3a Mildly to moderately decreased 45-59
G3b Moderately to severely decreased 30-44
G4 Severely decreased 15-29
G5 Kidney failure <15
Use of terms such as suspected, likely, concern for, or probable (associated with a specific diagnosis that is being evaluated, monitored, or treated as if it exists) are acceptable and can be coded in the inpatient setting, when documented at the
time of discharge.
Thank you,
Bianca Trejo RN BSN CCDS
CDI Specialist
Please contact via tiger text
Please use your independent medical judgment in providing your response.
*Source: Kidney Disease: Improving Global Outcomes (KDIGO) 2012
[2025-01-19 14:17] LABS: Folate 8.6 ng/ml (2.76-20)
[2025-01-19 15:15] VITALS: BP 145/69
--- NOTE | 2025-01-19 15:35 | W.PN.GI.CBS2 ---
Today's Communication / Plan
-
Awaiting MRI/MRCP r/o pancreatic head mass
Trend LFTs
Assessment / Plan
-
Impression:
Painless jaundice
Dilated bile ducts on US
Subjective
Subjective
Date of Service: January 19, 2025
reports dark urine, ev colored stools. Denies abd pain
Objective
Data Reviewed
Laboratory Data:
Laboratory Results
01/19/25 06:53
01/19/25 06:53
Laboratory Results
PT 13.6 Sec (11.4-14.6) 01/19/25 06:53
INR 1.01 01/19/25 06:53
Total Bilirubin 10.8 mg/dl (0.2-1.3) H 01/19/25 06:53
AST 130 U/L (17-59) H 01/19/25 06:53
ALT 144 U/L (0-50) H 01/19/25 06:53
Alkaline Phosphatase 648 U/L (38-126) H 01/19/25 06:53
Lipase 33 U/L (23-300) 01/18/25 15:22
Vital Signs and I&O:
Vital Signs
Temp Pulse Resp BP Pulse Ox
97.6 F 61 20 145/69 98
01/19/25 15:15 01/19/25 15:15 01/19/25 15:15 01/19/25 15:15 01/19/25 15:15
I&O
01/18/25 01/19/25 01/20/25
06:59 06:59 06:59
Intake Total 1720 / 1720
Output Total 1949 / 1949
Balance -230 / -230
Physical Exam
Physical Exam
GI: Soft, Non Distended and Non Tender
[2025-01-19] MEDS: LOVENOX SC (15:54)
[2025-01-19 16:21] LABS: Glucose - Point of Care 145 mg/dl (70-99)
--- NOTE | 2025-01-19 17:01 | CM ---
optical manager reviewed patient's chart and met with patient and patient lives alone in a multilevel home with a 1st floor setup, patient is independent with adl's and ambulation, no dme, patient drives, home when stable, will follow with progress
with physical therapy for any discharge planning needs.
PCP: Dr. Rodriguez
Pharmacy: [facility]
Plan; Home when stable.
[2025-01-19 19:13] VITALS: BP 164/84
[2025-01-19] MEDS: BENADRYL 25 MG PO (20:15)
[2025-01-19 21:03] LABS: Glucose - Point of Care 132 mg/dl (70-99)
[2025-01-19] MEDS: MELATONIN 3 MG PO (23:05)
[2025-01-19] MEDS: REFRESH CELLUVISC GEL 1 DROPS OPHTH (23:05)
[2025-01-19 23:06] VITALS: BP 153/81
[2025-01-20] VITALS (8 sets, daily range): BP systolic 119–181; BP diastolic 26–90; BMI 30.1
--- NOTE | 2025-01-20 02:02 | W.PN.UPDATE ---
Update Note
Progress Note Update
Asked by RN to evaluate patient for HR that drops to the 20's. Telemetry reviewed, HR drops to 20's while sleeping and returns to 50-60's when awake. Strips show pauses, ~ 2 seconds, occasionally. Appears to be sinus reina on monitor.
Vital signs: HR 76, BP 131/90, resp 18, 96% on room air, oral temp 98.0
Patient denies any symptoms, denies dizziness, lightheadedness, weakness, or SOB. Asked patient to ring for assistance when getting OOB, due to lower heart rate, he verbalized understanding. AM labs to be drawn early, added magnesium level.
AM labs: Magnesium 1.4. Ordered supplemental magnesium 1 g IV x 1.
--- NOTE | 2025-01-20 03:35 | PTCARENOTE ---
Pt on tele is NSR with 1AVB HR=60's. later on having pauses and HR 30-40s reina while sleep. would wake pt up and return to HR60's
pt having unstained, non symptomatic type II heart block. KEN Rose made aware.
[2025-01-20 04:14] LABS: Hematocrit 31.5 % (39.0-52.0); Hemoglobin 11.2 g/dL (13.0-18.0); Mean Corp Hgb Conc. 35.6 g/dL (33.0-37.0); Mean Corpuscular Volume 86.3 fL (80.0-94.0); Nucleated Red Blood Cells % 0 % (-); Platelet Count 196 10^3/uL (130-400); Red Cell Dist. Width 17.9 % (11.5-14.5)
[2025-01-20 04:18] LABS: INR 1.04; PT 13.9 Sec (11.4-14.6)
[2025-01-20 04:37] LABS: ALT (SGPT) 136 U/L (0-50); AST (SGOT) 121 U/L (17-59); Albumin 3.5 g/dl (3.5-5.0); Alkaline Phosphatase 646 U/L (38-126); Blood Urea Nitrogen 25 mg/dl (9-20); Calcium 8.7 mg/dl (8.4-10.2); Carbon Dioxide 26 mmol/L (22-30); Chloride 105 mmol/L (98-107); Estimated Creatinine Clearance 52 ml/min; Glucose 124 mg/dl (70-99); Magnesium 1.4 mg/dl (1.6-2.3); Potassium 3.5 mmol/L (3.5-5.1); Sodium 137 mmol/L (135-145); Total Protein 6.4 g/dl (6.3-8.2); eGFR 58.89
[2025-01-20] MEDS: MAGNESIUM SULFATE 102 GRAMS IV (05:13)
[2025-01-20] MEDS: APRESOLINE 50 MG PO ×3 (07:47→21:09)
[2025-01-20] MEDS: PROTONIX 40 MG PO (07:48)
[2025-01-20] MEDS: TENORMIN 50 MG PO (07:48)
[2025-01-20] MEDS: FLOMAX 0.4 MG PO (07:48)
[2025-01-20] MEDS: COZAAR 100 MG PO (07:48)
[2025-01-20 08:04] LABS: Glucose - Point of Care 131 mg/dl (70-99)
--- NOTE | 2025-01-20 09:59 | W.PN.HOSP.TC ---
Today's Communication/Plan
-
MRCP
Assessment / Plan
Assessment / Plan
Physical exam:
General: Acutely ill
HEENT: Icterus present. Normocephalic, Atraumatic and Moist Mucous Membranes
Respiratory: Clear to Auscultation; Negative Wheezes, Rales or Rhonchi
Cardiac: Regular Rhythm and S1/S2
GI: Soft, Nontender and Nondistended
Musculoskeletal: No Clubbing, No Cyanosis and No Edema
Neuro: Awake, Alert and Oriented, no neurological deficit
Psych: Calm
A/P:
Elevated liver function test:
Concerns for obstructive biliary tree process
GI consult appreciated
Plan for MRCP and if positive +/- ERCP EUS
Hold on antibiotic unless any fevers or evidence of infection
Add Benadryl as needed for itchiness
Ordered eyedrops at nighttime at patient request
Discussed with son at bedside today
Hypertensive urgency:
Improving
Multiple IV antihypertensives upon admission
Back to his home regimen losartan 100 mg daily and atenolol 50 mg p.o. daily. Added hydralazine 50 mg p.o. 3 times daily.
Monitor blood pressure and adjust medications according
Cardiac monitoring
Bradycardia:
On atenolol but not sure if he should cut down or discontinue-will wait for cardio input. He may also benefit from sleep apnea testing as outpatient
Cardiology consult
JERRY:
Improved
Off IV fluids
Check bladder scan
Avoid nephrotoxic
Check renal function in a.m.
Anemia:
Check anemia workup and anemia of chronic disease
Monitor hemoglobin
Diabetes mellitus type 2:
Diabetic diet
Insulin sliding scale
Update hemoglobin A1c-->5.7
Anxiety:
Given Xanax x 1
Reevaluate if needed more down the road
GERD:
Continue PPI
BPH:
Continue Flomax
DVT prophylaxis:
Lovenox SQ
CODE STATUS:
Full code
Spent 35 minutes
Anticipated Discharge: 24 - 48 hours
Subjective/Interval History
-
Date of Service: January 20, 2025
Patient bradycardic overnight. Less bradycardia this morning and appears to have chronotropic competence. No nausea or vomiting. Itchiness is better. Afebrile
Objective Data
-
Labs:
Laboratory Results
01/20/25
04:01
WBC 9.7
Hgb 11.2 L
Hct 31.5 L
Plt Count 196
PT 13.9
INR 1.04
Sodium 137
Potassium 3.5
Chloride 105
Carbon Dioxide 26
BUN 25 H
Creatinine 1.2
Glucose 124 H
Calcium 8.7
Total Bilirubin 10.2 H
AST 121 H
ALT 136 H
Alkaline Phosphatase 646 H
Vital Signs:
Vital Signs
Temp Pulse Resp BP Pulse Ox
98 F 56 18 135/87 99
01/20/25 07:34 01/20/25 07:34 01/20/25 07:34 01/20/25 07:34 01/20/25 07:34
I&O
01/19/25 01/20/25 01/21/25
06:59 06:59 06:59
Intake Total 1720 / 1720 580 / 580 480 / 480
Output Total 1950 / 1950 525 / 525
Balance -230 / -230 55 / 55 480 / 480
--- NOTE | 2025-01-20 10:25 | CM ---
Chart reviewed a patient's plan is to return to home when stable, patient case manager will follow with patient progress.
Plan; Home when stable.
--- NOTE | 2025-01-20 11:07 | W.PN.GI.CBS2 ---
Today's Communication / Plan
-
Await MRI/MRCP today
If evidence of pancreatic mass, will set up EUS/FNA
Assessment / Plan
-
Impression:
Painless jaundice
Dilated bile ducts on US
Subjective
Subjective
Date of Service: January 20, 2025
Denies complaints. Feels itching is improving
Objective
Data Reviewed
Laboratory Data:
Laboratory Results
01/20/25 04:01
01/20/25 04:01
Laboratory Results
PT 13.9 Sec (11.4-14.6) 01/20/25 04:01
INR 1.04 01/20/25 04:01
Magnesium 1.4 mg/dl (1.6-2.3) L 01/20/25 04:01
Total Bilirubin 10.2 mg/dl (0.2-1.3) H 01/20/25 04:01
AST 121 U/L (17-59) H 01/20/25 04:01
ALT 136 U/L (0-50) H 01/20/25 04:01
Alkaline Phosphatase 646 U/L (38-126) H 01/20/25 04:01
Lipase 33 U/L (23-300) 01/18/25 15:22
Vital Signs and I&O:
Vital Signs
Temp Pulse Resp BP Pulse Ox
98 F 56 18 135/87 99
01/20/25 07:34 01/20/25 07:34 01/20/25 07:34 01/20/25 07:34 01/20/25 07:34
I&O
01/19/25 01/20/25 01/21/25
06:59 06:59 06:59
Intake Total 1720 / 1720 580 / 580 480 / 480
Output Total 1950 / 1950 525 / 525
Balance -230 / -230 55 / 55 480 / 480
Physical Exam
Physical Exam
GI: Soft, Non Distended and Non Tender
--- NOTE | 2025-01-20 11:30 | CON.CAR ---
Addendum entered and electronically signed by Lennox Lomeli MD 01/20/25 18:01:
I saw and examined the patient.
The Set Builder's note was reviewed and I agree with the note.
Comment:
GEN: No distress, awake, Ox3
HEENT: supple, icteric, mmm
LUNGS: CTA, no wheezes/rales
CV: Reg, S1/S2, 1/6 syst LSB, no murmur
ABD: soft, BS+, NT/ND
EXT: No edema
NEURO: Gross non-focal
SKIN: No rash
Plan:
84-year-old male with past medical history of hypertension, diabetes and very remote paroxysmal atrial fibrillation presents with painless jaundice and pruritus. He was found to have a bilirubin of 10 with abnormal liver function testing. MRI
revealed no overt mass and he is now being evaluated for ERCP/EUS. We were asked to see him for sinus bradycardia with heart rates in the 40s to 50s. He was having some 2 to 3-second pauses.
The patient states that he has been on atenolol for many years and does get rare palpitations but has had no documented A-fib for a very long time. He does not see a judge clerk regularly.
I suspect he may have some level of sleep apnea contributing some to his pauses at night. Agree with trending pulse ox at night.
Will hold atenolol for now and follow on telemetry. Current telemetry with sinus rhythm. He does have some 2 to 3-second pauses at night but no significant heart block.
Check echocardiogram.
Okay to proceed with EUS and evaluate painless jaundice.
Original Note:
Consultation
Consultation Request
Date/Time Consultation Requested: 01/20/25
Date/Time Consultation Performed: 01/20/25
Requesting Provider: Dr. Barraza
Performing Provider: Dr. Lomeli
Reason for Consultation: Sinus bradycardia
Medical History
-
History of Present Illness:
Patient came to the hospital on Saturday with painless jaundice and pruritus and was admitted for ongoing workup, cardiology consulted for sinus bradycardia seen overnight. No ECG on admission, the patient followed on telemetry and noted to have
sinus bradycardia early this morning. Patient was awakened heart rate appropriately increased. Outpatient dose of atenolol 50 mg daily has been continued throughout this admission and on my review of the MAR the patient was given additional
labetalol 10 mg IV x 1 on 01/18/2025 at 1648, but no additional doses. Patient and family describe IV medications being given overnight, but I do not see any additional doses of labetalol given. Hydralazine 10 mg IV every 6 hours as a PRN is
ordered, but I do not see any doses given and certainly that would not affect HR. Patient says he was diagnosed with A-fib 40 years ago, but no documented recurrence. Patient has been on atenolol 50 mg daily for more than 10 years.
PMH:
HTN
DM 2
Reported history of paroxysmal A-fib 40 years ago
Past Medical History
Past Medical History: Other (in HPI)
Past Surgical History: Orthopedic and Urological (cystoscopy and urethral stricture)
Social History
Tobacco: Non-Smoker
Alcohol: Occasional
Drug: None
Personal:
Family History
Family History: Cancer
Allergies / Home Medications
Allergy/AdvReac Type Severity Reaction Status Date / Time
bee venom protein (honey bee) Allergy Swelling Verified 01/18/25 13:08
�Medication �Instructions �Recorded �Confirmed �Type
atenolol 50 mg tablet 50 mg PO DAILY Blood Pressure 10/05/10 01/18/25 History
losartan 100 mg tablet 100 mg PO DAILY Blood Pressure 11/19/23 01/18/25 History
metformin 500 mg tablet 500 mg PO DAILY Diabetes 11/19/23 01/18/25 History
omeprazole 20 mg capsule,delayed 20 mg PO DAILY GERD 11/19/23 01/18/25 History
release
tamsulosin 0.4 mg capsule (Flomax) 0.4 mg PO DAILY Urinary Issue 12/31/23 01/18/25 History
hydrocortisone 0.25 % lotion 1 ea topical PRN itchiness 01/19/25 History
Review of Systems
-
History Source: Patient and Family (partner and son at bedside)
All other systems: Negative unless noted
Physical Exam
Vital Signs
Temp Pulse Resp BP Pulse Ox
97.7 F 61 18 181/84 99
01/20/25 11:13 01/20/25 11:13 01/20/25 11:13 01/20/25 11:13 01/20/25 11:13
GEN: NAD. AAOx3
HEENT: EOMI
LUNGS: RA. No audible wheeze
CV: SR on tele
EXT: No clubbing, cyanosis, lesions or edema B/L
NEURO: Gross non-focal
SKIN: Jaundice. No rash
Lab Results
01/20/25 04:01
01/20/25 04:01
Impression / Plan
-
PCP: Dr. Enrique Rodriguez
Card: Dr. Wilberto Padilla, last seen 2004
Impression:
Admitted with painless jaundice 01/18/25
Sinus bradycardia
Possible MAG
Abnormal MRI abdomen with severe intrahepatic and extrahepatic bile duct dilatation and gallbladder hydrops with possible sludge/choledocholithiasis vs obstructing bile duct mass 01/20/2025
HTN
DM 2
Reported history of paroxysmal A-fib 40 years ago
Plan:
-Patient came to the hospital on Saturday with painless jaundice and pruritus and was admitted for ongoing workup, cardiology consulted for sinus bradycardia seen overnight. No ECG on admission, the patient followed on telemetry and noted to have
sinus bradycardia early this morning. Patient was awakened heart rate appropriately increased. Outpatient dose of atenolol 50 mg daily has been continued throughout this admission and on my review of the MAR the patient was given additional
labetalol 10 mg IV x 1 on 01/18/2025 at 1648, but no additional doses. Patient and family describe IV medications being given overnight, but I do not see any additional doses of labetalol given. Hydralazine 10 mg IV every 6 hours as a PRN is
ordered, but I do not see any doses given and certainly that would not affect HR. Patient says he was diagnosed with A-fib 40 years ago, but no documented recurrence. Patient has been on atenolol 50 mg daily for more than 10 years.
-No ECG performed this admission, ordered by me on 01/20/2025.
-Telemetry reviewed by me and patient with sinus bradycardia, but no higher grade heart block. Reviewed findings with patient and family in the room. We discussed that there is no indication for PPM at this time, but based on timing of sinus
bradycardia MAG should be considered as a diagnosis.
-Patient's son and partner are sitting bedside and patient's partner feels that CPAP therapy is intolerable. We discussed alternatives and also the fact that the patient does not yet have a formal diagnosis of MAG but that it suggest he should have
additional evaluation as an outpatient. I reviewed outpatient sleep study procedures. Patient is agreeable to a nocturnal pulse ox tonight and if there are any prolonged desaturation events there may be an indication for nocturnal oxygen therapy
at home, but otherwise he would need sleep study. Patient himself seems agreeable to sleep study
-No evidence of atrial fibrillation on telemetry monitoring and previous diagnosis was made more than 40 years ago. Patient is not chronically on OAC.
-Outpatient dose of atenolol 50 mg daily on hold, orders placed by me 01/20/2025
-Patient can proceed with any further GI workup or procedures without additional cardiac testing. Recommend periprocedure cardiac monitoring.
[2025-01-20 11:31] LABS: Glucose - Point of Care 218 mg/dl (70-99)
[2025-01-20 16:35] LABS: Glucose - Point of Care 150 mg/dl (70-99)
--- NOTE | 2025-01-20 20:55 | RESPNOTE ---
Pt is refusing the nocturnal study for O2. Pt states that it was 'just a one time thing' and he would prefer to follow up with his PCP.
[2025-01-20] MEDS: REFRESH CELLUVISC GEL 1 DROPS OPHTH (21:09)
[2025-01-20 21:57] LABS: Glucose - Point of Care 149 mg/dl (70-99)
[2025-01-21] VITALS (12 sets, daily range): BP systolic 119–185; BP diastolic 51–111; BMI 30.1
[2025-01-21 07:42] LABS: Hematocrit 31.4 % (39.0-52.0); Hemoglobin 11.2 g/dL (13.0-18.0); Mean Corp Hgb Conc. 35.7 g/dL (33.0-37.0); Mean Corpuscular Volume 88.0 fL (80.0-94.0); Platelet Count 203 10^3/uL (130-400); Red Cell Dist. Width 18.1 % (11.5-14.5)
[2025-01-21] MEDS: FLOMAX 0.4 MG PO (07:44)
[2025-01-21] MEDS: PROTONIX 40 MG PO (07:44)
[2025-01-21] MEDS: COZAAR 100 MG PO (07:44)
[2025-01-21] MEDS: APRESOLINE 50 MG PO ×3 (07:44→21:18)
[2025-01-21 08:04] LABS: INR 1.00; PT 13.7 Sec (11.4-14.6)
--- NOTE | 2025-01-21 08:18 | W.PN.HOSP.TC ---
Today's Communication/Plan
-
ERCP. Echo
Assessment / Plan
Assessment / Plan
Physical exam:
General: Acutely ill
HEENT: Icterus present. Normocephalic, Atraumatic and Moist Mucous Membranes
Respiratory: Clear to Auscultation; Negative Wheezes, Rales or Rhonchi
Cardiac: Regular Rhythm and S1/S2
GI: Soft, Nontender and Nondistended
Musculoskeletal: No Clubbing, No Cyanosis and No Edema
Neuro: Awake, Alert and Oriented, no neurological deficit
Psych: Calm
A/P:
Elevated liver function test:
Concerns for obstructive biliary tree process
GI consult appreciated
MRCP abnormal in review
Plan for ERCP +/- EUS
Hold on antibiotic unless any fevers or evidence of infection
Continue Benadryl as needed for itchiness
Ordered eyedrops at nighttime at patient request
Discussed with son at bedside prior
Hypertensive urgency:
Improving
Multiple IV antihypertensives upon admission
Back to his home regimen losartan 100 mg daily and discontinued atenolol due to bradycardia. Added hydralazine 50 mg p.o. 3 times daily.
Monitor blood pressure and adjust medications according
Cardiac monitoring
Bradycardia:
Cardiology consult appreciated
Atenolol discontinued
Plan for echocardiogram
Plan for sleep testing as outpatient ([facility] pulse oximetry here)
JERRY:
Improved
Off IV fluids
Check bladder scan
Avoid nephrotoxic
Check renal function in a.m.
Anemia:
Checked anemia workup and anemia of chronic disease
Monitor hemoglobin
Diabetes mellitus type 2:
Diabetic diet
Insulin sliding scale
Update hemoglobin A1c-->5.7
Anxiety:
Given Xanax x 1
Reevaluate if needed more down the road
GERD:
Continue PPI
BPH:
Continue Flomax
DVT prophylaxis:
Lovenox SQ
CODE STATUS:
Full code
Spent 35 minutes
Anticipated Discharge: Within 24 hours
Subjective/Interval History
-
Date of Service: January 21, 2025
Patient denies any abdominal pain nausea or vomiting. Denies chest pain shortness of breath or lightheadedness.
Objective Data
-
Labs:
Laboratory Results
01/21/25
07:20
WBC 11.0 H
Hgb 11.2 L
Hct 31.4 L
Plt Count 203
PT 13.7
INR 1.00
Sodium Pending
Potassium Pending
Chloride Pending
Carbon Dioxide Pending
BUN Pending
Creatinine Pending
Glucose Pending
Calcium Pending
Total Bilirubin Pending
AST Pending
ALT Pending
Alkaline Phosphatase Pending
Vital Signs:
Vital Signs
Temp Pulse Resp BP Pulse Ox
97.9 F 57 20 137/79 98
01/21/25 03:36 01/21/25 03:36 01/21/25 03:36 01/21/25 03:36 01/21/25 03:36
I&O
01/20/25 01/21/25 01/22/25
06:59 06:59 06:59
Intake Total 580 / 580 480 / 480
Output Total 525 / 525
Balance 55 / 55 480 / 480
[2025-01-21 08:25] LABS: ALT (SGPT) 129 U/L (0-50); AST (SGOT) 125 U/L (17-59); Albumin 3.5 g/dl (3.5-5.0); Alkaline Phosphatase 652 U/L (38-126); Blood Urea Nitrogen 25 mg/dl (9-20); Calcium 8.4 mg/dl (8.4-10.2); Carbon Dioxide 25 mmol/L (22-30); Chloride 103 mmol/L (98-107); Estimated Creatinine Clearance 47 ml/min; Glucose 136 mg/dl (70-99); Magnesium 1.6 mg/dl (1.6-2.3); Potassium 3.6 mmol/L (3.5-5.1); Sodium 137 mmol/L (135-145); Total Protein 6.4 g/dl (6.3-8.2); eGFR 53.50
[2025-01-21 11:51] LABS: Glucose - Point of Care 139 mg/dl (70-99)
--- NOTE | 2025-01-21 12:58 | CM ---
Chart reviewed, medical workup in progress, patient to return to home alone when stable.
Plan; Home no needs when stable.
--- NOTE | 2025-01-21 15:49 | W.PN.CARDCBS ---
Addendum entered and electronically signed by Matthew Tracy MD 01/21/25 16:04:
I saw and examined the patient.
The CHILD MONITOR or PA's note was reviewed and I agree with the note.
Comment: General: Well developed, well nourished in NAD.
Neck: Supple, no JVD, HJR, carotids +2 B/L, no bruits bilaterally.
Heart: Non displaced PMI, RRR, no murmurs, No S3, S4, no rubs.
Lungs: Scattered rhonchi
Skin: Jaundiced throughout
Extremities: No clubbing, cyanosis or edema bilaterally.
Neuro: Grossly nonfocal, awake, alert and oriented x3.
No further significant bradycardia. Continue to hold atenolol. Some bradycardia may be due to sleep apnea but he declines workup. Will sign off, call with questions.
Original Note:
Today's Communication / Plan
-
Suspect MAG, patient not interested in additional work-up at this time, outpatient MAG eval encouraged
Atenolol on hold
Impression / Plan
-
PCP: Dr. Enrique Rodriguez
Card: Dr. Wilberto Padilla, last seen 2004
Impression:
Admitted with painless jaundice 01/18/25
Sinus bradycardia
Possible MAG
Abnormal MRI abdomen with severe intrahepatic and extrahepatic bile duct dilatation and gallbladder hydrops with possible sludge/choledocholithiasis vs obstructing bile duct mass 01/20/2025
HTN
DM 2
Reported history of paroxysmal A-fib 40 years ago
Plan:
-Overnight telemetry reviewed at length by me. Patient with sinus pauses of 2 to 3 seconds and HR as low as 29 bpm associated with sleep. Patient refused the nocturnal pulse ox study from overnight telling nursing that it was 'just a one-time
thing' and that he did not wish to have any further testing here in the hospital.
-Atenolol 50 mg daily is on hold, last dose was 01/20/2025 in the AM
-Suspect that patient has underlying MAG, but he is not interested in further workup. Recommend outpatient sleep study
-No evidence of atrial fibrillation on telemetry monitoring and previous diagnosis was made more than 40 years ago. Patient is not chronically on OAC.
HPI: Patient came to the hospital on Saturday with painless jaundice and pruritus and was admitted for ongoing workup, cardiology consulted for sinus bradycardia seen overnight. No ECG on admission, the patient followed on telemetry and noted to have
sinus bradycardia early this morning. Patient was awakened heart rate appropriately increased. Outpatient dose of atenolol 50 mg daily has been continued throughout this admission and on my review of the MAR the patient was given additional
labetalol 10 mg IV x 1 on 01/18/2025 at 1648, but no additional doses. Patient and family describe IV medications being given overnight, but I do not see any additional doses of labetalol given. Hydralazine 10 mg IV every 6 hours as a PRN is
ordered, but I do not see any doses given and certainly that would not affect HR. Patient says he was diagnosed with A-fib 40 years ago, but no documented recurrence. Patient has been on atenolol 50 mg daily for more than 10 years.
Progress Note - Retail Warehouse Supervisor
Subjective
Date of Service: January 21, 2025
Feels he is fine, awaiting GI procedure
Objective
Labs:
01/21/25 07:20
01/21/25 07:20
Labs
Hgb 11.2 g/dL (13.0-18.0) L 01/21/25 07:20
Hct 31.4 % (39.0-52.0) L 01/21/25 07:20
Plt Count 203 10^3/uL (130-400) 01/21/25 07:20
PT 13.7 Sec (11.4-14.6) 01/21/25 07:20
INR 1.00 01/21/25 07:20
Sodium 137 mmol/L (135-145) 01/21/25 07:20
Potassium 3.6 mmol/L (3.5-5.1) 01/21/25 07:20
BUN 25 mg/dl (9-20) H 01/21/25 07:20
Creatinine 1.3 mg/dL (0.7-1.3) 01/21/25 07:20
Glucose 136 mg/dl (70-99) H 01/21/25 07:20
Vital Signs and I&O:
Vital Signs
Temp Pulse Resp BP Pulse Ox
98.5 F 57 20 162/79 100
01/21/25 11:10 01/21/25 11:10 01/21/25 11:10 01/21/25 11:10 01/21/25 11:10
Vital Signs
Temp Pulse Resp BP Pulse Ox
98.5 F 57 20 162/79 100
01/21/25 11:10 01/21/25 11:10 01/21/25 11:10 01/21/25 11:10 01/21/25 11:10
Intake & Output
01/19/25 01/20/25 01/21/25 01/22/25
06:59 06:59 06:59 06:59
Intake Total 1720 / 1720 580 / 580 480 / 480
Output Total 1950 / 1950 525 / 525
Balance -230 / -230 55 / 55 480 / 480
Physical Exam
Physical Exam
GEN: NAD. AAOx3
LUNGS: RA.
CV: SR on tele
[2025-01-21 16:57] LABS: Glucose - Point of Care 129 mg/dl (70-99)
[2025-01-21 20:00] LABS: Glucose - Point of Care 193 mg/dl (70-99)
--- NOTE | 2025-01-21 20:50 | PTCARENOTE ---
Pt arrived from PACU, Pt AAOx3, VSS. Pt stand/ pivot from stretcher to bed. at bedside. Call weinstein within reach.
[2025-01-21] MEDS: MAG-TAB SR 84 MG PO (21:18)
[2025-01-21] MEDS: REFRESH CELLUVISC GEL 1 DROPS OPHTH (21:19)
[2025-01-21 21:45] LABS: Glucose - Point of Care 146 mg/dl (70-99)
[2025-01-22 03:00] VITALS: BP 117/61
[2025-01-22 07:25] VITALS: BP 146/80
[2025-01-22 07:29] LABS: Glucose - Point of Care 150 mg/dl (70-99)
[2025-01-22 08:22] LABS: Hematocrit 33.1 % (39.0-52.0); Hemoglobin 11.4 g/dL (13.0-18.0); Mean Corp Hgb Conc. 34.4 g/dL (33.0-37.0); Mean Corpuscular Volume 89.2 fL (80.0-94.0); Platelet Count 202 10^3/uL (130-400); Red Cell Dist. Width 17.7 % (11.5-14.5)
[2025-01-22] MEDS: PROTONIX 40 MG PO (08:28)
[2025-01-22] MEDS: FLOMAX 0.4 MG PO (08:28)
[2025-01-22] MEDS: MAG-TAB SR 84 MG PO (08:29)
[2025-01-22] MEDS: APRESOLINE 50 MG PO (08:29)
[2025-01-22] MEDS: COZAAR 100 MG PO (08:29)
[2025-01-22 08:51] LABS: ALT (SGPT) 125 U/L (0-50); AST (SGOT) 110 U/L (17-59); Albumin 3.6 g/dl (3.5-5.0); Alkaline Phosphatase 572 U/L (38-126); Blood Urea Nitrogen 32 mg/dl (9-20); Calcium 8.8 mg/dl (8.4-10.2); Carbon Dioxide 24 mmol/L (22-30); Chloride 104 mmol/L (98-107); Estimated Creatinine Clearance 44 ml/min; Glucose 162 mg/dl (70-99); Potassium 4.2 mmol/L (3.5-5.1); Sodium 135 mmol/L (135-145); Total Protein 6.4 g/dl (6.3-8.2); eGFR 48.95
[2025-01-22 11:40] VITALS: BP 139/61
--- NOTE | 2025-01-22 11:42 | W.PN.HOSP.TC ---
Today's Communication/Plan
-
GI reeval. Discharge planning
Assessment / Plan
Assessment / Plan
Physical exam:
General: No acute distress
HEENT: Icterus present. Normocephalic, Atraumatic and Moist Mucous Membranes
Respiratory: Clear to Auscultation; Negative Wheezes, Rales or Rhonchi
Cardiac: Regular Rhythm and S1/S2
GI: Soft, Nontender and Nondistended
Musculoskeletal: No Clubbing, No Cyanosis and No Edema
Neuro: Awake, Alert and Oriented, no neurological deficit
Psych: Calm
A/P:
Elevated liver function test due to severe biliary stricture:
Patient had ERCP plus EUS yesterday status post biliary stent, removal of sludge and stone, status post biopsy lower third of the CBD
Doing well postprocedure today and LFTs slightly trending down
Awaiting for GI reevaluation and if can follow-up results outpatient then he could be discharged today
Discharge planning once cleared by GI
Hypertensive urgency:
Improved
Stable on current regimen
Bradycardia:
Improved
Off atenolol
JERRY:
Improving
Anemia:
Checked anemia workup and anemia of chronic disease
Monitor hemoglobin
Diabetes mellitus type 2:
Diabetic diet
Insulin sliding scale
Update hemoglobin A1c-->5.7
Anxiety:
Given Xanax x 1
Reevaluate if needed more down the road
GERD:
Continue PPI
BPH:
Continue Flomax
DVT prophylaxis:
Lovenox SQ
CODE STATUS:
Full code
Anticipated Discharge: Today
Subjective/Interval History
-
Date of Service: January 22, 2025
Patient feels well today. No abdominal pain or nausea or vomiting.
Objective Data
-
Labs:
Laboratory Results
01/22/25
08:05
WBC 8.7
Hgb 11.4 L
Hct 33.1 L
Plt Count 202
Sodium 135
Potassium 4.2
Chloride 104
Carbon Dioxide 24
BUN 32 H
Creatinine 1.4 H
Glucose 162 H
Calcium 8.8
Total Bilirubin 9.2 H
AST 110 H
ALT 125 H
Alkaline Phosphatase 572 H
Vital Signs:
Vital Signs
Temp Pulse Resp BP Pulse Ox
97.5 F 61 18 146/80 98
01/22/25 07:25 01/22/25 07:25 01/22/25 07:25 01/22/25 07:25 01/22/25 07:25
I&O
01/21/25 01/22/25 01/23/25
06:59 06:59 06:59
Intake Total 480 / 480 50 / 50 480 / 480
Balance 480 / 480 50 / 50 480 / 480
[2025-01-22 12:56] LABS: Glucose - Point of Care 256 mg/dl (70-99)
--- NOTE | 2025-01-22 13:46 | W.PN.GI.CBS2 ---
Today's Communication / Plan
-
Path pending
OP FU with Dr Hanson in 3mo time
Low fat diet
Ok for hosp d/c if tolerates above
Assessment / Plan
-
Jeovany is an 84yo M with h/o DM, GERD and HTN who was admitted with painless jaundiced and elevated LFTs. ERCP done 01/21 with bx and stent placement.
Impression:
- Painless jaundice
- Dilated bile ducts on US
- DM
- GERD
Recommendations
- Adv to low fat diet
- LFTs downtrending
- Pathology pending and Dr Hanson/office will alert him next week of results
- FU with Dr Hanson in 3mo, message sent to GI front office director
Ok from GI perspective for hosp d/c today if tolerates diet
GI will sign off please call for ?
Subjective
Subjective
Date of Service: January 22, 2025
No issues overnight. Denies abd pain, N/V. He is tolerating CLD
Objective
Data Reviewed
Laboratory Data:
Laboratory Results
01/22/25 08:05
01/22/25 08:05
Laboratory Results
PT 13.7 Sec (11.4-14.6) 01/21/25 07:20
INR 1.00 01/21/25 07:20
Magnesium 1.6 mg/dl (1.6-2.3) 01/21/25 07:20
Total Bilirubin 9.2 mg/dl (0.2-1.3) H 01/22/25 08:05
AST 110 U/L (17-59) H 01/22/25 08:05
ALT 125 U/L (0-50) H 01/22/25 08:05
Alkaline Phosphatase 572 U/L (38-126) H 01/22/25 08:05
Lipase 33 U/L (23-300) 01/18/25 15:22
Vital Signs and I&O:
Vital Signs
Temp Pulse Resp BP Pulse Ox
97.9 F 75 18 139/61 98
01/22/25 11:40 01/22/25 11:40 01/22/25 11:40 01/22/25 11:40 01/22/25 11:40
I&O
01/21/25 01/22/25 01/23/25
06:59 06:59 06:59
Intake Total 480 / 480 50 / 50 480 / 480
Balance 480 / 480 50 / 50 480 / 480
Physical Exam
Physical Exam
GEN: No acute distress, conversant, pleasant
HEENT: +icteric, extraocular movements intact, clear oropharynx without exudates
GI: soft, non-distended, not tender to palpation, normal active bowel sounds, no hepatosplenomegaly
EXT: warm, well perfused, no edema bilaterally
NEURO: AAOx3, non-focal
--- NOTE | 2025-01-22 14:36 | W.DCSUMMARY ---
Discharge Summary
Discharge Data
Date of Admission: 01/18/25
Date of Discharge: 01/22/25
Total time spent discharging patient (in min): 35
-
Pending Results: Yes
Additional Pending Results:
Biopsy CBD
Hospital Course
Patient 84-year-old male with history of hypertension, GERD, diabetes mellitus, came into the hospital with painless jaundice. GI consulted. Patient also had hypertensive urgency and bradycardia. Cardiology evaluated the patient. Patient's
beta-lovely was discontinued during this hospital stay. His blood pressure medications were adjusted as established on discharge medications list. Blood pressure has improved overall. There is concerns of a sleep apnea so recommended sleep
testing as outpatient. His bradycardia improved and he has remained asymptomatic. He had an echocardiogram with normal EF and will follow-up results as outpatient with cardiology. Patient underwent MRCP that showed biliary tree abnormalities
therefore GI did an ERCP/EUS on 01/21. He had a biliary stent in place, also biliary sludge and fragment of stone was taking care, and biopsy of the lower third of the main duct was completed during procedure and results will be follow-up as
outpatient by GI. Otherwise, patient has remained afebrile and hemodynamically stable. Blood pressure and heart rate improved as mentioned. GI has cleared him for discharge. He will be discharged in stable condition today.
Discharge duration: 35 minutes
Discharge Plan
-
Patient Disposition: Home (Routine Discharge)
Discharge Diagnosis/Procedures: Elevated liver function test due to biliary stricture. Hypertensive urgency. Sinus bradycardia.
Diet: Low Fat and Diabetic, Carb Controlled
Activity: As tolerated
Blood Work: Please PCP to order CBC, CMP within 1 week
Referrals:
Lupillo Hanson MD [Active, Gastroenterology]
Referral Note: 3 months for biliary stents
Enrique Rodriguez MD [Family Provider, Internal Medicine] - in less than 1 week
Referral Note: Please follow-up with Dr. Rodriguez about concerns for obstructive sleep apnea based on multiple nights of heart rate slowing with sleep.
Prescriptions:
New
hydralazine 50 mg Tablet
50 mg PO TID 30 Days Qty: 90 0RF
Continued
metformin 500 mg Tablet
500 mg PO DAILY
omeprazole 20 mg Capsule,Delayed Release(Dr/Ec)
20 mg PO DAILY
losartan 100 mg Tablet
100 mg PO DAILY
tamsulosin [Flomax] 0.4 mg Capsule
0.4 mg PO DAILY
hydrocortisone 0.25 % Lotion
1 ea TOPICAL PRN (Reason: itchiness)
Discontinued
atenolol 50 MG tablet
50 mg PO DAILY
Discharge Orders:
Discharge Patient (As Directed); Ordered 01/22/25
Ordered By: Ivan Barraza
Discharge Date and Time
Discharge Date/Time: 01/22/25 16:17
Print Language: CITIZEN OF [place]
[2025-01-22 15:32] VITALS: BP 119/64
== END 2025-01-22 16:17 | disposition home or self-care (01) | DRG 445 ==
LOC: 4 WEST ACU 16:22
PROVIDERS: Physician Assistant; ADMITTING PHYSICIAN Hospitalist; CONSULT PHYSICIAN Internal Medicine Cardiovascular Disease; EMERGENCY PHYSICIAN Emergency Medicine; FAMILY PHYSICIAN Internal Medicine; OTHER PHYSICIAN Internal Medicine Gastroenterology
PROC: BF101ZZ Fluoroscopy of Bile Ducts using Low Osmolar Contrast (ICD-10-PCS; 2025-01-22)
PROC: 0F798ZZ Dilation of Common Bile Duct, Via Natural or Artificial Opening Endoscopic (ICD-10-PCS; 2025-01-22)
DX: K83.1 Obstruction of bile duct (principal); K82.1 Hydrops of gallbladder; N17.9 Acute kidney failure, unspecified; I16.0 Hypertensive urgency; K21.9 Gastro-esophageal reflux disease without esophagitis; Z79.84 Long term (current) use of oral hypoglycemic drugs; E66.9 Obesity, unspecified; Z68.30 Body mass index [BMI] 30.0-30.9, adult; Z96.649 Presence of unspecified artificial hip joint; D64.9 Anemia, unspecified; F41.9 Anxiety disorder, unspecified; N40.0 Benign prostatic hyperplasia without lower urinary tract symptoms; Z80.0 Family history of malignant neoplasm of digestive organs; I48.0 Paroxysmal atrial fibrillation; Z86.0100 Personal history of colon polyps, unspecified; I12.9 Hypertensive chronic kidney disease with stage 1 through stage 4 chronic kidney disease, or unspecified chronic kidney disease; E11.22 Type 2 diabetes mellitus with diabetic chronic kidney disease; N18.31 Chronic kidney disease, stage 3a
CPT/HCPCS: 36415; 74183; 74330; 76000; 76700; 80053; 81003; 81015; 82248; 82607; 82728; 82746; 82962; 83036; 83540; 83550; 83690; 83735; 85025; 85027; 85610; 86704; 86705; 86706; 86708; 86803; 87340; 88112; 88305; 88342; 93306; 96361; 96374; 99285; A9575; C1769; C2617

== ENCOUNTER → 2025-01-26 10:48 | Outpatient (REF) | payer MEDICARE, SELFPAY ==
[2025-01-26 11:52] LABS: Hematocrit 35.4 % (39.0-52.0); Hemoglobin 12.2 g/dL (13.0-18.0); Mean Corp Hgb Conc. 34.5 g/dL (33.0-37.0); Mean Corpuscular Volume 92.4 fL (80.0-94.0); Nucleated Red Blood Cells % 0 % (-); Platelet Count 279 10^3/uL (130-400); Red Cell Dist. Width 16.1 % (11.5-14.5)
[2025-01-26 12:10] LABS: ALT (SGPT) 101 U/L (0-50); AST (SGOT) 82 U/L (17-59); Albumin 3.8 g/dl (3.5-5.0); Alkaline Phosphatase 452 U/L (38-126); Blood Urea Nitrogen 46 mg/dl (9-20); Calcium 9.1 mg/dl (8.4-10.2); Carbon Dioxide 27 mmol/L (22-30); Chloride 100 mmol/L (98-107); Glucose 175 mg/dl (70-99); Potassium 4.6 mmol/L (3.5-5.1); Sodium 136 mmol/L (135-145); Total Protein 7.0 g/dl (6.3-8.2); eGFR 41.70
[2025-01-26 13:39] LABS: Hepatitis A Antibody, Total Negative (Negative)
== END ==
LOC: REG 10:48
PROVIDERS: ATTENDING PHYSICIAN Internal Medicine
DX: R17 Unspecified jaundice (principal); R53.83 Other fatigue; Z80.0 Family history of malignant neoplasm of digestive organs
CPT/HCPCS: 36415; 80053; 85025; 86704; 86705; 86706; 86708

== ENCOUNTER → 2025-05-07 13:09 | Outpatient (REF) | payer MEDICARE, SELFPAY | LOC: HWRAD 13:09 | PROVIDERS: ATTENDING PHYSICIAN Internal Medicine Hematology & Oncology; FAMILY PHYSICIAN Internal Medicine | DX: C22.1 Intrahepatic bile duct carcinoma (principal) | CPT/HCPCS: 74150 ==

== ENCOUNTER → 2025-07-05 10:42 | Outpatient (REF) | payer MEDICARE, SELFPAY ==
[2025-07-05 11:18] LABS: Hematocrit 35.3 % (39.0-52.0); Hemoglobin 11.6 g/dL (13.0-18.0); Mean Corp Hgb Conc. 32.9 g/dL (33.0-37.0); Mean Corpuscular Volume 83.1 fL (80.0-94.0); Nucleated Red Blood Cells % 0 % (-); Platelet Count 221 10^3/uL (130-400); Red Cell Dist. Width 14.5 % (11.5-14.5)
[2025-07-05 11:58] LABS: ALT (SGPT) 20 U/L (0-50); AST (SGOT) 31 U/L (17-59); Albumin 4.0 g/dl (3.5-5.0); Alkaline Phosphatase 95 U/L (38-126); Blood Urea Nitrogen 28 mg/dl (9-20); Calcium 8.8 mg/dl (8.4-10.2); Carbon Dioxide 25 mmol/L (22-30); Chloride 104 mmol/L (98-107); Glucose 200 mg/dl (70-99); Potassium 4.1 mmol/L (3.5-5.1); Sodium 136 mmol/L (135-145); Total Protein 6.9 g/dl (6.3-8.2); eGFR > 60.00
== END ==
LOC: REG 10:42
PROVIDERS: ATTENDING PHYSICIAN Internal Medicine Hematology & Oncology; FAMILY PHYSICIAN Internal Medicine
DX: C22.1 Intrahepatic bile duct carcinoma (principal)
CPT/HCPCS: 36415; 80053; 85025